=== PATIENT | female | born 1995 | race Caucasian/White ===

== ENCOUNTER 2019-03-26 22:39 | Emergency (ER) | payer SELFPAY, OTHER ==
[2019-03-26 23:01] LABS: URINE BLOOD (Dip) POC 2+ (NEGATIVE); URINE GLUCOSE (Dip) POC Negative (NEGATIVE); URINE KETONES (Dip) POC Negative (NEGATIVE); URINE LEUKOCYTE EST (Dip) POC Negative (NEGATIVE); URINE NITRITE (Dip) POC Negative (NEGATIVE); URINE TOTAL PROTEIN POC Negative (NEGATIVE)
[2019-03-26 23:01] LABS: URINE PH (Dip) POC 6.5 (5.0-8.5)
== END 2019-03-27 01:05 | disposition home or self-care (01) ==
LOC: FTE 03-27 01:05
DX: R20.0 Anesthesia of skin (principal)
CPT/HCPCS: 81003; 81025; 82962; 93005; 99283-25